=== PATIENT | female | born 1990 | race African-American/Black ===

== ENCOUNTER 2018-01-04 14:58 | Emergency (ER) | payer OTHER ==
[~2018-01-04] VITALS: Ht 172.7 cm; Wt 81.6 kg
[~2018-01-04 14:58] MED LIST: IBUPROFEN800 MG PO; KEFLEX500 M1 PO
[2018-01-04 15:04] VITALS: BP 147/87
--- NOTE | 2018-01-04 15:09 | ED SKIN/ALLERGY COMPLAINT ---
History of Present Illness General Chief Complaint: Eye Problems Stated Complaint: SWOLLEN EYE Source: patient Exam Limitations: no limitations Vital Signs & Intake/Output Vital Signs & Intake/Output Vital Signs Date Time Temp Pulse Resp B/P B/P Pulse O2 O2 Flow FiO2 Mean Ox Delivery Rate 01/04 1555 Room Air 01/04 1504 98.2 103 18 147/87 98 Room Air Room Air Allergies Coded Allergies: NO KNOWN ALLERGIES (02/10/16) Reconcile Medications Cephalexin (Keflex) 500 MG CAPSULE 1 CAP PO BID infection Hydroxyzine Hydrochloride (Atarax) 50 MG TAB 1 TAB PO TID ITCHING Prednisone 10 MG TABLET 1 TAB PO AD RASH 6 TABS DAYS 1-3 4 TABS DAUS 4-6 2 TABS DAYS 7-9 1 TAB DAYS 10-12 Triage Note: PT TO ED WITH C/O LEFT EYE SWELLING, RASH TO FACE, EYE STARTED X 2-3 DAYS, WORSE TODAY. PT EVAL IN TRIAGE BY ARNIE LOUISE. Triage Nurses Notes Reviewed? yes Onset: Abrupt Duration: day(s): Timing: recent history Severity: moderate, severe : No Patient currently breastfeeds: No HPI: 27-year-old female comes into the emergency room for further evaluation of swelling to her face and rash. Patient reports that she had some itchy eyes the other day. She went to the walk-in clinic and was given antibiotic drops. He reports that today she woke up and her face was swollen. She denies any tongue swelling or difficulty breathing. She denies any new skin care products. Denies any new lotions or detergents. Denies any other associated symptoms. She comes in for further evaluation. (Arnie Poe) Past History Travel History Traveled to [place] past 21 day No Medical History Any Pertinent Medical History? 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 No (Arnie Poe) Review of Systems Review of Systems Constitutional: Reports: no symptoms. EENTM: Reports: see HPI. Respiratory: Reports: no symptoms. Cardiovascular: Reports: no symptoms. GI: Reports: no symptoms. Genitourinary: Reports: no symptoms. Musculoskeletal: Reports: no symptoms. Skin: Reports: no symptoms. Neurological/Psychological: Reports: no symptoms. Hematologic/Endocrine: Reports: no symptoms. Immunologic/Allergic: Reports: see HPI. All Other Systems: Reviewed and Negative (Arnie Poe) Physical Exam Physical Exam General Appearance: well developed/nourished Head: atraumatic, periorbital edema Eyes: Bilateral: normal appearance, EOMI. Ears, Nose, Throat: normal ENT inspection, hearing grossly normal Neck: normal inspection Respiratory: normal breath sounds, no respiratory distress Gastrointestinal: soft, non-tender Back: normal inspection Extremities: normal inspection, normal range of motion, no edema Neurologic/Psych: awake, alert, oriented x 3, normal mood/affect Skin: intact, rash (Arnie Poe) Progress Differential Diagnosis: abscess/cellulitis, allergic reaction, anaphylaxis, angioedema, contact dermatitis, drug reaction Plan of Care: Current Medications Sig/Brandy Start time Last Medication Dose Stop Time Status Admin Methylprednisolone 125 MG ONCE ONE 01/04 1515 UNVr (Solu Medrol) 01/04 1516 Comments: 01/04/2018 3:57:37 PM Patient clinically looks well. Patient is no apparent distress. Patient is nontoxic-appearing. Symptoms most consistent with allergic reaction. No evidence of anaphylaxis. Patient treated with prednisone. Follow-up with PCP. Return if any other concerns worsening symptoms. Understands and agrees plan of care. (Arnie Poe) Departure Departure Disposition: HOME OR SELF CARE Condition: Stable Clinical Impression Primary Impression: Allergic reaction Referrals: Jasvir Tay MD (PCP/Family) Additional Instructions: Take prednisone and hydroxyzine as prescribed. Follow-up with primary care doctor. Return if any concerns worsening symptoms. Please go over all results of today's visit with your primary care doctor. Contact your primary care doctor to let them know you were here in the emergency room. There may be nonspecific findings which may not be related to your visit today here in the emergency room but may require further evaluation and chronic monitoring by your primary care doctor. If you had a laceration today the chance of foreign body always remains. You should follow-up with your primary care doctor for recheck in 3-5 days for a wound check. If you had an x-ray done there is a chance that a fracture could have been missed on initial read and you should follow-up with your primary care doctor for repeat x-rays if symptoms persist. If your blood pressure was elevated here in the emergency room please have rechecked by anaour primary care doctor within the next 48. If you were prescribed a narcotic here in the emergency room or any type of controlled substances you're not allowed to drive while taking this medication or operate any type of heavy machinery. Narcotics can make you feel lightheaded dizziness nausea and can cause constipation. 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 Thank you for choosing [facility] emergency room. Please return to the emergency room immediately if you have any other concerns worsening of symptoms. Departure Forms: Customer Survey General Discharge Information Prescriptions: Current Visit Scripts Prednisone 1 TAB PO AD #39 TAB 6 TABS DAYS 1-3 4 TABS DAUS 4-6 2 TABS DAYS 7-9 1 TAB DAYS 10-12 Hydroxyzine Hydrochloride (Atarax) 1 TAB PO TID #30 TAB (Arnie Poe) PA/TISSUE COORDINATOR Co-Sign Statement Statement: ED Attending supervision documentation- I saw and evaluated the patient. I have also reviewed all the pertinent lab results and diagnostic results. I agree with the findings and the plan of care as documented in the PA's/TISSUE COORDINATOR's documentation. x I have reviewed the ED Record and agree with the PA's/TISSUE COORDINATOR's documentation. [] Additions or exceptions (if any) to the PAs/TISSUE COORDINATOR's note and plan are summarized below: [] (Ernestine SINGH,[place]t)
[2018-01-04] MEDS ORDERED: PREDNISONE10 M2 PO (15:51)
[2018-01-04] MEDS ORDERED: HYDROXYZINE HCL50 M1 PO (15:51)
== END 2018-01-04 15:55 ==
LOC: ERH 14:58
DX: T78.40XA Allergy, unspecified, initial encounter (principal); R21 Rash and other nonspecific skin eruption
CPT/HCPCS: 96372; J2930

== ENCOUNTER 2018-02-09 18:50 | Emergency (ER) | payer OTHER ==
[~2018-02-09] VITALS: Ht 172.7 cm; Wt 81.6 kg
[~2018-02-09 18:50] MED LIST changes: +HYDROXYZINE HCL50 M1 PO; +PREDNISONE10 M2 PO
--- NOTE | 2018-02-09 19:47 | ED GI/GU/ABDOMINAL COMPLAINT ---
History of Present Illness General Chief Complaint: Abdominal Pain/Flank Pain Stated Complaint: GENERALIZED LOWER ABD PAIN X3DAYS +ND -V Source: patient Exam Limitations: no limitations Vital Signs & Intake/Output Vital Signs & Intake/Output Vital Signs Date Time Temp Pulse Resp B/P B/P Pulse O2 O2 Flow FiO2 Mean Ox Delivery Rate 02/097 98.0 82 20 128/68 98 Room Air 02/09 1858 97.1 88 18 145/80 98 Room Air Allergies Coded Allergies: NO KNOWN ALLERGIES (02/10/16) Triage Note: PT SENT FROM [facility] TO RULE OUT [facility], PT STATES THAT SHE HAS HAD NAUSEA AND CONSTANT DIAHREA FOR 3 DAYS. PT STATES THAT SHE IS NOT ABLE TO EAT DUE TO SOON SHE DOES SHE HAS TO GO TO BATHROOM Triage Nurses Notes Reviewed? yes ? N Is pt currently ? No Onset: Gradual Duration: constant Timing: recent history Severity Numbers: 7 Location: right lower quadrant HPI: Patient is a 27-year-old female who presents emergency room with concerns of a four-day history of right lower quadrant abdominal pain and nausea and multiple episodes of loose watery diarrhea production. Patient states vomiting has resolved on the first day patient can tolerate by mouth however has decreased transit time for diarrhea Denies any blood or melena. Denies any recent antibiotic use. Denies any fever chills back pain dysuria hematuria vaginal bleeding or discharge. Patient was evaluated at urgent care facility was advised to present emergent for evaluation of appendicitis (Murphy Woodard) Reconcile Medications Albuterol Sulfate (Proair Hfa) 90 MCG HFA.AER.AD 2 PUF INH AD PRN ASTHMA ( Reported) Albuterol Sulfate 2.5 MG/3 ML (0.083 %) VIAL.NEB 1 Vial INH/JEIMY AD PRN ASTHMA (Reported) Budesonide/Formoterol Fumarate (Symbicort 80-4.5 Mcg Inhaler) 80 MCG-4.5 MCG/ ACTUATION HFA.AER.AD 2 PUF INH PRN ASTHMA (Reported) Dicyclomine HCl 10 MG CAPSULE 1 CAP PO TID PRN GASTROENTERITIS Meloxicam (Mobic) 15 MG TABLET 1 TAB PO DAILY PRN PAIN Ondansetron HCl (Zofran) 4 MG TABLET 1 TAB PO Q6-8P PRN NAUSEA (Ernestine SINGH,Mt) Past History Travel History Traveled to [place] past 21 day No Medical History Any Pertinent Medical History? 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 No (Murphy Woodard) Review of Systems Review of Systems Constitutional: Reports: no symptoms. EENTM: Reports: no symptoms. Respiratory: Reports: no symptoms. Cardiovascular: Reports: no symptoms. GI: Reports: see HPI, abdominal pain. Genitourinary: Reports: no symptoms. Musculoskeletal: Reports: no symptoms. Skin: Reports: no symptoms. Neurological/Psychological: Reports: see HPI, headache. Hematologic/Endocrine: Reports: no symptoms. Immunologic/Allergic: Reports: no symptoms. All Other Systems: Reviewed and Negative (Murphy Woodard) Physical Exam Physical Exam General Appearance: no apparent distress, alert, comfortable Head: atraumatic, normal appearance Eyes: Bilateral: normal appearance. Ears, Nose, Throat, Mouth: hearing grossly normal, moist mucous membrane Respiratory: chest non-tender, no respiratory distress Cardiovascular: regular rate/rhythm Gastrointestinal: normal bowel sounds, soft, right lower quadrant pain Extremities: normal range of motion Neurologic/Psych: no motor/sensory deficits, awake Skin: intact, normal color Core Measures ACS in differential dx? No Sepsis Present: No Sepsis Focused Exam Completed? No (Murphy Woodard) Progress Differential Diagnosis: AMI, appendicitis, biliary colic, bowel obstruction, colon cancer, cholecystitis, diverticulitis, ectopic , endometritis, esophageal varices, gastritis, hepatitis, hernia, hemorrhoids, ischemic bowel, inflamm bowel dis, intrauterine , kidney stone, Leny-Tania tear, ovarian cyst, ovarian torsion, pancreatitis, PID/cervicitis, peptic ulcer, PUD/ GERD, perforated viscous, SBO, threatened AB, UTI/pyelo Plan of Care: Orders Procedure Date/time Status LACTIC ACID 02/09 2005 Complete HUMAN BETA HCG SCREEN 02/09 2005 Complete COMPREHENSIVE METABOLIC PANEL 02/09 2005 Complete CBC WITHOUT DIFFERENTIAL 02/09 2005 Complete Laboratory Tests 02/09/182028: Lactic Acid Cancelled 02/09/182028: Anion Gap 9, Estimated GFR > 60, BUN/Creatinine Ratio 18.3, Glucose 97, Lactic Acid 1.0, Calcium 9.6, Total Bilirubin 0.2, AST 32, ALT 22, Alkaline Phosphatase 71, Total Protein 8.2, Albumin 4.5, Globulin 3.7, Albumin/Globulin Ratio 1.2, Total Beta HCG NEGATIVE, CBC w Diff NO MAN DIFF REQ, RBC 4.01 L, MCV 90.3, MCH 30.2, MCHC 33.5, RDW 13.8, MPV 7.6, Gran % 50.9, Lymphocytes % 26.4, Monocytes % 18.9 H, Eosinophils % 3.5, Basophils % 0.3, Absolute Granulocytes 4.2, Absolute Lymphocytes 2.2, Absolute Monocytes 1.6 H, Absolute Eosinophils 0.3, Absolute Basophils 0 Patient upon initial presentation is resting complete at bedside no apparent distress on her phone [phone] patient is resting comfortably again at bedside states she has improvement of her symptoms, CT scan was pending I reviewed all blood work with patient CT scan was resulting showing nonspecific colitis patient was afebrile no signs of infectious process, patient was able tolerate by mouth upon discharge she would be treated for concerns of gastroenteritis Diagnostic Imaging: Viewed by Me: CT Scan. Radiology Impression: SEE COMMENTS Initial ED EKG: none Comments: PATIENT: GEMA RODRIGUES PRESENT AGE: 27 PATIENT ACCOUNT NO: [id number] : 91 LOCATION: [facility] ORDERING PHYSICIAN: Murphy LOUISE SERVICE DATE: 02/09/18 EXAM TYPE: CAT - CT ABD & PELVIS W IV CONTRAST EXAMINATION: CT ABDOMEN AND PELVIS WITH CONTRAST CLINICAL INFORMATION: Right lower quadrant pain, nausea, vomiting, diarrhea COMPARISON: CT 09/18/2013 TECHNIQUE: Multidetector volumetric imaging was performed of the abdomen and pelvis following IV administration of 95 mL of Optiray 320 intravenous contrast. Sagittal and coronal reformatted images were obtained on the technologist's workstation. FINDINGS: LUNG BASES: The visualized lung bases are unremarkable. LIVER, GALLBLADDER, AND BILIARY TREE: The liver is diffusely hypoattenuating. There is relative to increased density/hyperenhancement involving 1.3 x 1.1 cm region adjacent the fissure of the falciform ligament. This could represent a hyperenhancing lesion such as a hemangioma or focal fatty sparing in a background of diffuse hepatic steatosis. The hepatic and portal veins enhance normally. The gallbladder is unremarkable with no evidence of radiopaque gallstones, gallbladder wall thickening, or obvious pericholecystic inflammatory changes. PANCREAS: Unremarkable. SPLEEN: Unremarkable. ADRENAL GLANDS: Unremarkable. KIDNEYS AND URETERS: The kidneys are normal in size, shape, and attenuation. No hydronephrosis, hydroureter, or calculi seen. No perinephric stranding. BLADDER: Unremarkable. GASTROINTESTINAL TRACT: The stomach and small bowel are nondilated. The appendix is well-seen and normal, for example coronal images 42-43. Numerous prominent right lower quadrant lymph nodes are seen, for example coronal image 40-41. There is wall thickening of the cecum and proximal right colon. The from the hepatic flexure to the splenic flexure, the colon has a normal appearance. There is a suggestion of wall thickening of the left colon and sigmoid colon although they are collapsed. There is mild left-sided diverticulosis. No evidence of pericolonic fluid or fat stranding to suggest diverticulitis. ABDOMINAL WALL: No significant hernia is appreciated. LYMPH NODES: Prominent right lower quadrant mesenteric lymph nodes. No retroperitoneal, iliac, or inguinal lymphadenopathy. VASCULAR: Unremarkable. PELVIC VISCERA: The uterus and adnexa are unremarkable. OSSEOUS STRUCTURES: Unremarkable. IMPRESSION: Wall thickening of the cecum and proximal right colon. There may also be wall thickening of the left colon and sigmoid colon, although they are collapsed. A colitis could give this appearance. The appearance is new from the prior study 09/18/2013. Background of likely diffuse hepatic steatosis. Hyperdense/hyperenhancing lesion adjacent the fissure of the falciform ligament could represent focal fatty sparing or hemangioma. DICTATED BY: Barry Martinez MD DATE/TIME DICTATED:02/09/182205 CASH SHORTAGE INVESTIGATOR:DEWAYNE (Murphy Woodard) Departure Departure Disposition: HOME OR SELF CARE Condition: Stable Clinical Impression Primary Impression: Abdominal pain Secondary Impressions: Gastroenteritis Referrals: Jasvir Tay MD (PCP/Family) Sergio Rivera MD Additional Instructions: As discussed begin drinking plenty of water for hydration, begin the prescription of Bentyl for your symptoms Zofran for nausea and meloxicam for pain. If no better in 2 days follow-up with dry food products mixer Dr. Rivera. If symptoms worsen return to emergency room. Prescriptions waiting at [facility] Departure Forms: Customer Survey General Discharge Information Prescriptions: Current Visit Scripts Dicyclomine HCl 1 CAP PO TID PRN GASTROENTERITIS #9 CAP Ondansetron HCl (Zofran) 1 TAB PO Q6-8P PRN NAUSEA #8 TAB Meloxicam (Mobic) 1 TAB PO DAILY PRN PAIN #7 TAB (Murphy Woodard) PA/TRAIN ATTENDANT Co-Sign Statement Statement: ED Attending supervision documentation- I saw and evaluated the patient. I have also reviewed all the pertinent lab results and diagnostic results. I agree with the findings and the plan of care as documented in the PA's/TRAIN ATTENDANT's documentation. x I have reviewed the ED Record and agree with the PA's/TRAIN ATTENDANT's documentation. [] Additions or exceptions (if any) to the PAs/TRAIN ATTENDANT's note and plan are summarized below: [] (Ernestine SINGH,Mt)
[2018-02-09 20:40] LABS: ABSOLUTE BASOPHIL COUNT 0 /CUMM (0.0-0.2); ABSOLUTE EOSINOPHIL COUNT 0.3 /CUMM (0.0-0.7); ABSOLUTE GRANULOCYTE CT 4.2 /CUMM (1.4-6.5); ABSOLUTE LYMPH COUNT 2.2 /CUMM (1.2-3.4); ABSOLUTE MONOCYTE COUNT 1.6 /CUMM (0.10-0.60); BASOPHIL % 0.3 % (0.0-2.0); EOSINOPHIL % 3.5 % (0-5); GRANULOCYTE % 50.9 % (42.2-75.2); HEMATOCRIT 36.3 % (37-47); MEAN CORPUSCULAR HGB 30.2 PG (27.0-31.0); MEAN CORPUSCULAR HGB CONC 33.5 G/DL (33.0-37.0); MEAN CORPUSCULAR VOLUME 90.3 FL (81.0-99.0); MEAN PLATELET VOLUME 7.6 FL (7.4-10.4); PLATELET COUNT 331 /CUMM (130-400); RBC DISTRIBUTION WIDTH 13.8 % (11.5-14.5); RED BLOOD CELL CT 4.01 /CUMM (4.20-5.40); WHITE BLOOD CELL COUNT 8.3 /CUMM (4.8-10.8)
[2018-02-09] MEDS ORDERED: PROAIR HFA8.5 GM INH (20:51)
[2018-02-09] MEDS ORDERED: SYMBICORT 80-10.2 GM INH (20:52)
[2018-02-09] MEDS ORDERED: ALBUTEROL2.5 MG/3 M INH/SOL (20:53)
--- NOTE | 2018-02-09 22:17 | CT SCAN REPORT ---
EXAMINATION: CT ABDOMEN AND PELVIS WITH CONTRAST CLINICAL INFORMATION: Right lower quadrant pain, nausea, vomiting, diarrhea COMPARISON: CT 09/18/2013 TECHNIQUE: Multidetector volumetric imaging was performed of the abdomen and pelvis following IV administration of 95 mL of Optiray 320 intravenous contrast. Sagittal and coronal reformatted images were obtained on the technologist's workstation. FINDINGS: LUNG BASES: The visualized lung bases are unremarkable. LIVER, GALLBLADDER, AND BILIARY TREE: The liver is diffusely hypoattenuating. There is relative to increased density/hyperenhancement involving 1.3 x 1.1 cm region adjacent the fissure of the falciform ligament. This could represent a hyperenhancing lesion such as a hemangioma or focal fatty sparing in a background of diffuse hepatic steatosis. The hepatic and portal veins enhance normally. The gallbladder is unremarkable with no evidence of radiopaque gallstones, gallbladder wall thickening, or obvious pericholecystic inflammatory changes. PANCREAS: Unremarkable. SPLEEN: Unremarkable. ADRENAL GLANDS: Unremarkable. KIDNEYS AND URETERS: The kidneys are normal in size, shape, and attenuation. No hydronephrosis, hydroureter, or calculi seen. No perinephric stranding. BLADDER: Unremarkable. GASTROINTESTINAL TRACT: The stomach and small bowel are nondilated. The appendix is well-seen and normal, for example coronal images 42-43. Numerous prominent right lower quadrant lymph nodes are seen, for example coronal image 40-41. There is wall thickening of the cecum and proximal right colon. The from the hepatic flexure to the splenic flexure, the colon has a normal appearance. There is a suggestion of wall thickening of the left colon and sigmoid colon although they are collapsed. There is mild left-sided diverticulosis. No evidence of pericolonic fluid or fat stranding to suggest diverticulitis. ABDOMINAL WALL: No significant hernia is appreciated. LYMPH NODES: Prominent right lower quadrant mesenteric lymph nodes. No retroperitoneal, iliac, or inguinal lymphadenopathy. VASCULAR: Unremarkable. PELVIC VISCERA: The uterus and adnexa are unremarkable. OSSEOUS STRUCTURES: Unremarkable. IMPRESSION: Wall thickening of the cecum and proximal right colon. There may also be wall thickening of the left colon and sigmoid colon, although they are collapsed. A colitis could give this appearance. The appearance is new from the prior study 09/18/2013. Background of likely diffuse hepatic steatosis. Hyperdense/hyperenhancing lesion adjacent the fissure of the falciform ligament could represent focal fatty sparing or hemangioma.
[2018-02-09] MEDS ORDERED: MOBIC15 M1 PO (22:26)
[2018-02-09] MEDS ORDERED: DICYCLOMINE HCL10 M1 PO (22:26)
[2018-02-09] MEDS ORDERED: ZOFRAN4 M2 PO (22:26)
[2018-02-09 22:27] VITALS: BP 128/68
== END 2018-02-09 22:58 ==
LOC: ERH 18:50
PROVIDERS: Physician Assistant
DX: K52.9 Noninfective gastroenteritis and colitis, unspecified (principal)
CPT/HCPCS: 74177; 96361; 96374; 96375; J1885; J2405